=== PATIENT | female | born 1955 | race African-American/Black ===

== ENCOUNTER 2021-08-24 08:54 | Day surgery (SDC) | payer OTHER ==
[2021-08-22 12:57] VITALS: BMI 19.1
[2021-08-24] MEDS ORDERED: ROPIVACAINE HCL/PF 100 MG/20 ML VIAL ONE (09:31)
[2021-08-24] MEDS ORDERED: MIDAZOLAM HCL 2 MG/2 ML SINGLE DOSE VIAL ONE ×2 (09:31→10:47)
[2021-08-24] MEDS ORDERED: BUPIVACAINE HCL/PF 0.25% (2.5MG/ML) 10 ML VIAL ONE (10:11)
[2021-08-24] MEDS ORDERED: GUM MASTIC/STORAX/MSAL/ALCOHOL 1 DRP DROPSBTL MC ONE (10:13)
[2021-08-24] MEDS ORDERED: PROPOFOL 20 ML ONE (10:47)
[2021-08-24] MEDS ORDERED: ONDANSETRON 4 MG/2 ML VIAL IVPUSH PRN (11:26)
[2021-08-24] MEDS ORDERED: oxyCODONE HCL 5 MG TABLET PO PRN (11:26)
[2021-08-24] MEDS ORDERED: LACTATED RINGERS SOLUTION 1,000 ML IV SCH (11:30)
[2021-08-24] MEDS ORDERED: LABETALOL HCL 5 MG/1 ML (100MG/20 ML VIAL) IVPUSH ONE (11:52)
[2021-08-24] MEDS ORDERED: ONDANSETRON 4 MG/2 ML VIAL ONE (12:29)
[2021-08-24] MEDS ORDERED: oxyCODONE HCL 5 MG TABLET ONE (13:10)
[2021-08-24 13:14] VITALS: TEMP 97.9
[2021-08-24 13:37] VITALS: BP 116/74; PULSE 75
== END 2021-08-24 14:10 | disposition home or self-care (01) ==
LOC: FASU 08:54
PROVIDERS: ATTEND Orthopaedic Surgery Hand Surgery
PROC: 0LX80ZZ Transfer Left Hand Tendon, Open Approach (ICD-10-PCS; 2021-08-24)
PROC: 0LX50ZZ Transfer Right Lower Arm and Wrist Tendon, Open Approach (ICD-10-PCS; principal; 2021-08-24 10:55)
DX: M18.12 Unilateral primary osteoarthritis of first carpometacarpal joint, left hand (principal)
CPT/HCPCS: 94760